=== PATIENT | female | born 1990 | race Two or more races ===

== ENCOUNTER 2023-06-05 11:08 | Outpatient (CLI) | payer OTHER | END 2023-06-05 11:19 | disposition home or self-care (01) | LOC: RAD 11:08 | PROVIDERS: ATTEND Orthopaedic Surgery | DX: M25.531 Pain in right wrist (principal); M25.532 Pain in left wrist ==

== ENCOUNTER 2025-03-31 19:40 | Emergency (ER) | payer OTHER ==
[~2025-03-31] VITALS: Ht 157.5 cm; Wt 83.9 kg
[2025-03-31] MEDS ORDERED: 0.9 % SODIUM CHLORIDE 1,000 ML IV STA (21:50)
[2025-03-31] MEDS ORDERED: FAMOtidine 10 MG/ML (4ML VIAL) IV STA (21:51)
[2025-03-31] MEDS ORDERED: ONDANSETRON HCL 2 MG/ML VIAL IV STA (21:51)
[2025-03-31] MEDS ORDERED: ONDANSETRON HCL 2 MG/ML VIAL ONE (22:09)
[2025-03-31] MEDS ORDERED: FAMOTIDINE/PF 20 MG/2 ML VIAL ONE (22:10)
[2025-03-31 22:11] LABS: BASO % 0.3 % (0.1-1.2); EOS # 0.01 (0.04-0.54); EOS % 0.1 % (0.7-7.0); HEMATOCRIT 39.5 % (34.1-44.9); HEMOGLOBIN 13.9 g/dL (11.2-15.7); LYMPH # 2.18 (1.18-3.74); MEAN CORPUSCULAR HEMOGLOBIN 30.3 pg (25.6-32.2); MONO # 0.98 (0.24-0.82); MONO % 6.7 % (4.7-12.5); NEUT # 11.25 (1.56-6.13); NEUT % 77.6 % (34.0-71.1); PLATELET COUNT 233 K/uL (163-369); RED BLOOD COUNT 4.59 M/uL (3.93-5.22); RED CELL DISTRIBUTION WIDTH 12.6 % (11.6-14.4)
[2025-03-31 22:51] LABS: ALBUMIN 3.6 gm/dL (3.4-5.0); BILIRUBIN TOTAL 0.69 mg/dL (0.3-1.2); CALCIUM 8.6 mg/dL (8.5-10.1); CREATININE SERUM 1.01 mg/dL (0.55-1.02); GFR 62.37; GLOBULINA 4.3 G/DL (2.4-3.5); POTASSIUM 3.68 mEq/L (3.5-5.1); TOTAL PROTEIN 7.9 gm/dL (6.4-8.2)
[2025-03-31 23:14] LABS: URINE APPEARANCE Clear; URINE BILIRRUBIN Small (NEGATIVE); URINE BLOOD Moderate; URINE COLOR Dark Yellow; URINE GLUCOSE Negative (NEGATIVE); URINE LEUKOCYTE Negative; URINE NITRATE Negative
[2025-03-31 23:18] LABS: URINE BACTERIA 632.7 uL (0.0-1933); URINE RBC 86.9 uL (0.0-20.8); URINE WBC 6.4 uL (0.0-23.2)
[2025-04-01 00:06] LABS: URINE CAST 0.14 uL (0.0-1.40); URINE KETONE 40 (NEGATIVE); URINE PROTEIN 100 (NEGATIVE)
[2025-04-01] MEDS ORDERED: ACETAMINOPHEN 500 MG GEL..CAP PO ONE (00:41)
[2025-04-01] MEDS ORDERED: METHYLPREDNISOLONE SOD SUCC 125 MG VIAL IV STA (06:30)
[2025-04-01] MEDS ORDERED: ALBUTEROL SULFATE 3 ML/2.5 MG AMPUL.NEB IH STA (06:30)
[2025-04-01] MEDS ORDERED: GUAIFENESIN 200 MG/10 ML BLIST.PACK PO STA (06:31)
[2025-04-01] MEDS ORDERED: METHYLPREDNISOLONE SOD SUCC 125 MG VIAL ONE (06:37)
[2025-04-01] MEDS ORDERED: GUAIFENESIN 200 MG/10 ML BLIST.PACK PO ONE (06:38)
[2025-04-01] MEDS ORDERED: ALBUTEROL SULFATE 3 ML/2.5 MG AMPUL.NEB IH ONE ×2 (06:40→08:56)
[2025-04-01] MEDS ORDERED: ALBUTEROL SULFATE 3 ML/2.5 MG AMPUL.NEB IH SCH ×2 (08:00→17:00)
[2025-04-01] MEDS ORDERED: METOCLOPRAMIDE HCL 10 MG in DEXTROSE 5 % IN WATER 50 ML IV ONE (09:15)
[2025-04-01] MEDS ORDERED: SUCRALFATE 1 G TABLET PO ONE (09:15)
[2025-04-01] MEDS ORDERED: METOCLOPRAMIDE HCL 5 MG/ML VIAL ONE (09:38)
[2025-04-01 12:51] LABS: BASO % 0.1 % (0.1-1.2); HEMATOCRIT 39.2 % (34.1-44.9); HEMOGLOBIN 13.7 g/dL (11.2-15.7); LYMPH # 0.62 (1.18-3.74); LYMPH % 4.6 % (19.3-53.1); MEAN CORPUSCULAR HEMOGLOBIN 30.9 pg (25.6-32.2); MONO # 0.16 (0.24-0.82); MONO % 1.2 % (4.7-12.5); NEUT # 12.68 (1.56-6.13); NEUT % 93.5 % (34.0-71.1); PLATELET COUNT 229 K/uL (163-369); RED BLOOD COUNT 4.43 M/uL (3.93-5.22); RED CELL DISTRIBUTION WIDTH 12.8 % (11.6-14.4)
[2025-04-01 13:13] LABS: ALBUMIN 3.4 gm/dL (3.4-5.0); BILIRUBIN TOTAL 0.49 mg/dL (0.3-1.2); CALCIUM 8.8 mg/dL (8.5-10.1); CREATININE SERUM 0.8 mg/dL (0.55-1.02); GFR 81.62; GLOBULINA 4.8 G/DL (2.4-3.5); POTASSIUM 3.39 mEq/L (3.5-5.1); TOTAL PROTEIN 8.2 gm/dL (6.4-8.2)
[2025-04-01] MEDS ORDERED: PROTONIX40 MG PO (14:30)
[2025-04-01] MEDS ORDERED: ONDANSETRON ODT8 MG PO (14:30)
[2025-04-01] MEDS ORDERED: CARAFATE1 GM PO (14:30)
== END 2025-04-01 14:59 | disposition home or self-care (01) ==
LOC: ER 20:09
PROVIDERS: General Practice
DX: R11.10 Vomiting, unspecified (principal); R11.2 Nausea with vomiting, unspecified; Z88.1 Allergy status to other antibiotic agents
CPT/HCPCS: 36415; 74177; 94640; Q9965